=== PATIENT | female | born 2000 | race Hispanic/Latino ===

== ENCOUNTER 2023-05-11 17:27 | Emergency (ER) | payer OTHER ==
[~2023-05-11] VITALS: Ht 160 cm; Wt 73.0 kg
[2023-05-11 18:47] LABS: BASOPHILS # (AUTO) 0.03 K/uL (0.00-0.20); BASOPHILS % (AUTO) 0.3 % (0.0-5.0); EOSINOPHILS # (AUTO) 0.04 K/uL (0.00-0.70); EOSINOPHILS % (AUTO) 0.4 % (0.0-8.0); HEMATOCRIT 34.3 % (36-48); IMMATURE GRANULOCYTE ABSOLUTE 0.03 K/uL (0-1); LYMPHOCYTES # (AUTO) 2.3 K/uL (1.0-4.8); LYMPHOCYTES % (AUTO) 25.4 % (21.0-51.0); MEAN CORPUSCULAR HGB CONC 33.5 g/dL (32.0-36.0); MEAN CORPUSCULAR VOLUME 86.4 fL (80-100); MONOCYTES # (AUTO) 0.5 K/uL (0.1-1.0); NEUTROPHILS # (AUTO) 6.3 K/uL (1.8-7.7); NEUTROPHILS % (AUTO) 68.6 % (40.0-77.0); PLATELET COUNT (AUTO) 272 K/uL (130-400); RED BLOOD CELL COUNT(AUTO) 3.97 MIL/uL (4.00-5.50); RED CELL DISTRIBUTION WIDTH 13.8 % (11.0-15.5); WHITE BLOOD COUNT (AUTO) 9.2 K/uL (4.8-10.8)
[2023-05-11 18:54] LABS: CREATININE 0.7 mg/dL (0.5-1.0); POTASSIUM 3.7 mmol/L (3.5-5.1)
[2023-05-11 21:12] LABS: INR <= 0.93 (0.85-1.15); PROTHROMBIN TIME 10.9 SEC (9.6-11.6)
[2023-05-11] MEDS: KETOROLAC 15MG/ML VIAL (15MG/ML) IV ONE (22:25)
[2023-05-11] MEDS ORDERED: MEDR10TA11 PO (23:02)
[2023-05-11] MEDS: ESTROGENS,CONJUGATED 25 MG/VIAL IV SCH (23:04)
[2023-05-11 23:31] VITALS: BP 99/72; PULSE 82; RESP 18; O2SAT 99
== END 2023-05-12 00:17 | disposition home or self-care (01) ==
LOC: EDH 17:27
DX: N92.0 Excessive and frequent menstruation with regular cycle (principal); D69.6 Thrombocytopenia, unspecified
CPT/HCPCS: 99285; 96374; 76856; 96375; 80048; 85025; 85610; 85730; 81025; 36415; J1410; J1885